=== PATIENT | male | born 1960 | race Two or more races ===

== ENCOUNTER 2022-05-05 06:07 | Emergency (ER) | payer OTHER ==
[~2022-05-05] VITALS: Ht 170.2 cm; Wt 110.0 kg
[2022-05-05] MEDS ORDERED: IOHEXOL 300 MG/ML 100ML BOTTLE IJ ONE (07:21)
[2022-05-05 07:53] LABS: Basophils # (auto) 0.1 10 ^3/uL (0-0.2); Basophils % (auto) 0.4 % (0.0-2.0); Eosinophils # (auto) 0.1 10 ^3/uL (0-0.8); Eosinophils % (auto) 0.6 % (0.0-7.0); Hematocrit 45.5 % (41.0-53.0); Hemoglobin 15.4 g/dL (13.5-17.5); Lymphocytes # (auto) 1.7 10 ^3/uL (0.4-5.4); Lymphocytes % (auto) 9.1 % (10.0-50.0); Mean Corpuscular Hemoglobin 30.6 pg (28.0-32.0); Mean Corpuscular Volume 90.1 fL (80.0-100.0); Monocytes # (auto) 1.4 10 ^3/uL (0-1.3); Monocytes % (auto) 7.3 % (0.0-12.0); Neutrophils # (auto) 15.2 10 ^3/uL (1.6-8.6); Neutrophils % (auto) 82.6 % (37.0-80.0); Nucleated Red Blood Cells % 0.3 %; Red Blood Cells 5.05 10^6/uL (4.5-5.90); Red Cell Distribution Width 13.5 % (11.8-14.3); White Blood Cell 18.5 10^3/uL (4.4-10.8)
[2022-05-05 08:02] LABS: Amphetamine Screen, Urine NEGATIVE (NEGATIVE); Barbiturate Scree,Urine NEGATIVE (NEGATIVE); Benzodiazephine Screen, Urine NEGATIVE (NEGATIVE); Cannabinoid Screen, Urine NEGATIVE (NEGATIVE); Cocaine Screen, Urine NEGATIVE (NEGATIVE); Opiate Scree,Urine NEGATIVE (NEGATIVE); Phencyclidine Screen, Urine NEGATIVE (NEGATIVE)
[2022-05-05 08:22] LABS: Albumin 4.4 g/dL (3.4-5.0); Potassium 4.1 mmol/L (3.5-5.1)
[2022-05-05 08:24] LABS: BUN/Creatinine Ratio 19.8; Bilirubin, Total 0.5 mg/dL (0.2-1.0); Total Protein 7.4 g/dL (6.4-8.2)
[2022-05-05 08:27] LABS: Alcohol, Urine < 3.0 mg/dL (0-10)
[2022-05-05 10:16] LABS: INR 0.91 (0.9-1.15); Partial Thromboplastin Time 25.3 sec (24.6-33.4)
[2022-05-05 11:47] VITALS: BP 148/76
[2022-05-05] MEDS ORDERED: CEPH-510 PO (11:59)
== END 2022-05-05 12:45 | disposition home or self-care (01) ==
LOC: EDBD 06:07 → ER 06:07
DX: M79.10 Myalgia, unspecified site (principal); J40 Bronchitis, not specified as acute or chronic; R51.9 Headache, unspecified; M54.2 Cervicalgia; E11.9 Type 2 diabetes mellitus without complications; I10 Essential (primary) hypertension; V43.53XA Car driver injured in collision with pick-up truck in traffic accident, initial encounter; Y93.89 Activity, other specified; Y92.89 Other specified places as the place of occurrence of the external cause; Y99.8 Other external cause status
CPT/HCPCS: 36415; 70450; 71260; 72125; 73110; 73610; 74177; 80053; 80307; 84484; 85025; 85610; 85730; 93005; 99285; Q9967